=== PATIENT | male | born 1995 | race African-American/Black ===

== ENCOUNTER 2024-06-08 13:46 | Emergency (ER) | payer OTHER, SELFPAY ==
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
[2024-06-08 14:14] VITALS: BP 145/75; PULSE 43; RESP 18; TEMP 36.7; O2SAT 95
[2024-06-08] MEDS: ACETAMINOPHEN 500 MG TABLET 1000 MG PO (17:25)
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
--- OUTSIDE RECORDS SUMMARY | 2024-06-12 16:50 | XMS_ITS ---
Author Organization [facility] Address [address] [place] [address] Care Team Providers Care Human Resources Trainee Name Role Phone Yeny Meyer Primary Care Provider [phone] REASON FOR VISIT dm f/u Encounters Encounter Location Date Provider Diagnosis [address] [place] [address] 03/20/2024 Yeny Meyer Plan Of Treatment No Information Progress Notes * Kareen CARDENASlDOB: 6 (29 yo M)Acc No.[id number]:03/20/2024 Progress Notes Patient:?Balta CARDNEAS Provider:?Yeny Meyer DNP, FNP-C :1995???Age:29 Y???Sex:Male Lake e:03/20/2024 [address] [facility] [facility] Subjective: * Chief Complaints: * ???1. Dm f/u. * Medical History:? Objective: Assessment: Plan: * Treatment: * Care Plan Details* * Electronic signature of Honey Meyer DNP, FNP-C on 06/12/2024 at 04:49 PM PRODUCTION MATERIAL COORDINATOR Sign off status: Pending Visit Status:?N/S (No-Show) * Provider:?Yeny Meyer DNP, FNP-C Lake e:?03/20/2024 Generated for Printi ng/Faxing/eTransmitting on:?06/12/2024 04:49 PM PRODUCTION MATERIAL COORDINATOR
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
--- OUTSIDE RECORDS SUMMARY | 2024-06-12 16:50 | XMS_ITS | Patient Health Record ---
Author Organization [facility] Address [address] [place] [address] Care Team Providers Care Reel Winder Name Role Phone Yeny Meyer Primary Care Provider [phone] Allergies No Known Allergies Results Component Value Reference Range Notes HEMOGLOBIN A1c (IH) Reviewed date:03/11/2024 10:06:34 AM Interpretation:8.1 Performing Lab: Notes/Report: 8.1 HEMOGLOBIN A1c 8.1 4 - 5.9 MICROALBUMIN/CREATININE, RAN DOM URINE * Reviewed date:03/12/2024 12:37:22 PM Interpretation:289 Performing Lab:[facility], [address] [place] [id number] Notes/Report: ALBUMIN CONCENTRATION, URINE 22 CREATININE, URINE 76 MICROALBUMIN/CREATININE RATIO 289 <=30 MG/G BLOOD COUNT WITH DIFF * Reviewed date:03/12/2024 12:37:23 PM Interpretation:Normal Performing Lab:[facility], [address] [place] [address] Notes/Report: WBC 5.0 3.9-12.0 K/UL RBC 5.05 4.00-6.10 M/UL HEMOGLOBIN 14.8 13.2-18.0 GM/DL HEMATOCRIT 43.7 38.0-55.0 % MCV 86.5 80.0-99.0 FL MCH 29.3 26.0-35.0 PG MCHC 33.8 32.0-37.0 GM/DL RDW 12.9 11.6-15.0 % PLATELET 226 150-450 K/UL MPV 10.3 6.5-11.0 FL METHOD Automated Differential % NEUTROPHIL - AUTOMATED COUNT 56.1 40.0-70.0 % % LYMPHOCYTE - AUTOMATED COUNT 32.9 25.0-45.0 % % MONOCYTE - AUTOMATED COUNT 6.7 2.0-12.0 % % EOSINOPHIL - AUTOMATED COUNT 3.6 0.0-6.0 % % BASOPHIL - AUTOMATED COUNT 0.7 0.0-2.0 % ABSOLUTE NEUTROPHIL - AUTOMA SOLOMON COUNT 2.8 1.3-7.5 K/UL ABSOLUTE LYMPHOCYTE - AUTOMA SOLOMON COUNT 1.6 1.3-4.2 K/UL ABSOLUTE MONOCYTE - AUTOMATED COUNT 0.3 0.2-1 .0 K/UL ABSOLUTE EOSINOPHIL - AUTOMA SOLOMON COUNT 0.2 0.0-0.5 K/UL ABSOLUTE BASOPHIL - AUTOMATED COUNT 0.0 <=0.2 K/UL NUCLEATED RBC'S - AUTOMATED COUNT 0.7 COMPREHENSIVE METABOLIC PANE L (CMP) * Reviewed date:03/12/2024 12:37:23 PM Interpretation:BS 250 Performing Lab:[facility], [address] [place] [address] Notes/Report: BLOOD UREA NITROGEN 15 6-20 MG/DL SODIUM 139 135-145 MMOL/L POTASSIUM 4.8 3.5-5.2 MMOL/L CHLORIDE 101 98-108 MMOL/L CO2 CONTENT 31 24-32 MMOL/L GLUCOSE 250 65-110 MG/DL CALCIUM 9.5 8.6-10.6 MG/DL CREATININE 0.98 0.50-1.50 MG/DL TOTAL PROTEIN 6.7 6.0-8.0 GM/DL ALBUMIN 4.1 3.4-5.0 GM/DL ALK PHOS 185 40-125 U/L ALT 21 7-50 U/L AST 18 10-40 U/L BILIRUBIN, TOTAL 0.5 0.0-1.2 MG/DL ANION GAP 7 3-11 MMOL/L ESTIMATED GLOMERULAR FILTRAT ION RATE, CKD-EPI 108 >=60 mL/min/1.73m*2 HEP C ANTIBODY * Reviewed date:03/12/2024 12:37:23 PM Interpretation:Negative Performing Lab:[facility], [address] [place] [id number] Notes/Report: HEPATITIS C AB Negative Negative LIPID PANEL * Reviewed date:03/12/2024 12:37:23 PM Interpretation:Normal Performing Lab:[facility], [address] [place] [address] Notes/Report: CHOLESTEROL 176 <200 MG/DL HDL 61 >40 MG/DL TRIGLYCERIDE 70 <150 MG/DL LDL, CALCULATED 101 <130 MG/DL CHLAMYDIA/GC AMP PROBE - URI NE * Reviewed date:03/14/2024 06:46:33 AM Interpretation:Negative Performing Lab:[facility], [address] [place] [address] Notes/Report: CHLAMYDIA AMP PROBE Negative Negative GC AMP PROBE Negative Negative TOTAL SYPHILIS ANTIBODY IGG AND IGM * Reviewed date:03/12/2024 12:37:23 PM Interpretation:Negative Performing Lab:[facility], [address] [place] [address] Notes/Report: TOTAL SYPHILIS Non-Reactive Non-Reactive HIV ANTIBODY/ANTIGEN SCREEN WITH REFLEX * Reviewed date:03/12/2024 12:37:23 PM Interpretation:Negative Performing Lab:[facility], [address] [place] [address] Notes/Report: HIV AG-AB Non-Reactive Non-Reactive HIV-1 AB Non-Reactive Non-Reactive HIV-1 AG Non-Reactive Non-Reactive HIV-2 AB Non-Reactive Non-Reactive TRICHOMONAS VAGINALIS BY AMP LIFIED PROBE Reviewed date:03/14/2024 06:46:33 AM Interpretation:Negative Performing Lab:[facility], [address] [place] [address] Notes/Report: This test utilizes a specimen type or collection device that is considered a modification of the FDA approved test, and its performance characteristics were determined by [facility]. It has not been cleared or approved by the U.S. Food and Drug Administration. TRICHOMONAS VAGINALIS AMP PROBE Negative Negative Reason For Referral No Information Medications Medication SIG (Take, Route, Frequency, Duration) Notes Start Date End Date Status Lantus SoloStar 100 UNIT/ML 20 units Subcutaneous Endo BRENDA Active HumaLOG KwikPen 100 UNIT/ML 4 units plus sliding scale Subcutaneous Endo BRENDA Active Immunizations Vaccine Route Administration Date Status Comme nts FLU VAC TRIVAL (3 ORTIZ) NO MA SV >6 MO Unknown 03/11/2024 Refused HEP A VACC, PED/ADOL, 2 DOSE Unknown 12/20/2013 Adminis tered Hep B, unspecified formulati on (CPT 97195 Inactive) Unknown 1996 Administered Hep B, unspecified formulati on (CPT 34049 Inactive) Unknown 1996 Administered Hep B, unspecified formulati on (CPT 13599 Inactive) Unknown 1996 Administered Hib, unspecified formulation Unknown 1996 Adminis tered Hib, unspecified formulation Unknown 1996 Adminis tered Hib, unspecified formulation Unknown 1996 Adminis tered HPV (human papillomavirus), quadrivalent, 3 dose schedule Unknown 03/23/2011 Administered HPV (human papillomavirus), quadrivalent, 3 dose schedule Unknown 05/23/2011 Administered HPV (human papillomavirus), quadrivalent, 3 dose schedule Unknown 09/21/2011 Administered MMR VACCINE, SC Unknown 06/24/1997 Administered MMR VACCINE, SC Unknown 02/27/2002 Administered PNEUMOCOCCAL VACC 13 ORTIZ IM Unknown 03/11/2024 Refused poliovirus vaccine, unspecif ied formulation Unknown 1996 Administered poliovirus vaccine, unspecif ied formulation Unknown 1996 Administered poliovirus vaccine, unspecif ied formulation Unknown 1996 Administered poliovirus vaccine, unspecif ied formulation Unknown 02/27/2002 Administered TDAP VACCINE >7 IM Unknown 02/05/2008 Administered VARICELLA IMMUNIZATION Unknown 03/25/1997 Administered VARICELLA IMMUNIZATION Unknown 11/14/2006 Administered Social History Tobacco Use: Social History Observation Description Date Details (start date - stop date) Never Smoker NA - NA Sexual History Question Answer Notes Had sex in the past 12 months (vaginal, oral, or anal)? Yes with Women only Use protection? Yes How often? Some of the time Prevention strategies discussed: Condoms Have you ever had a Sexually transmitted disease ? Yes Chlamydia? Yes Tobacco use other than smoking: Question Answer Notes Are you an other tobacco user? No Tobacco Control (Standard) Question Answer Notes Tobacco use: Nonsmoker Additional Findings: Tobacco non-user Current no nsmoker AUDIT-C (Standard) Question Answer Notes Did you have a drink containing alcohol in the p ast year? 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) Active confirmed Vital Signs Heart Rate 67 /min 03/11/2024 Temperature 98.5 degrees Fahrenheit 03/11/2024 Respiratory Rate 16 /min 03/11/2024 Height-cm 175.26 cm 03/11/2024 Blood pressure diastolic 90 mm Hg 03/11/2024 Oximetry 100 % 03/11/2024 Weight-kg 80.1 kg 03/11/2024 Height 69 in 03/11/2024 Blood pressure systolic 147 mm Hg 03/11/2024 Weight 176.6 lbs 03/11/2024 BMI 26.08 kg/m2 03/11/2024 Encounters Encounter Location Date Provider Diagnosis [facility] [address] [place] [address] 03/11/2024 Yeny Meyer Type 1 diabetes mellitus with other diabetic kidney complication E10.29 ; Proteinuria, unspecified R80.9 ; Elevated blood pressure reading R03.0 ; Routine screening for STI (sexually transmitted infection) Z11.3 ; BMI 26.0-26.9,adult Z68.26 ; Exercise counseling Z71.82 and Dietary counseling Z71.3 Assessments Encounter Date Diagnosis (ICD Code) Assessment Notes Treatment Notes Treatment Clinical Notes Section Notes 03/11/2024 Type 1 diabetes mellitus with other diabetic kidney complication (ICD-10 - E10.29) encourageD patient to call endocrinology and schedule follow-up appointment. States he does not need refills on his insulin at this time. The plan of care is based on evidence based guidelines recommended by the [place] [employer] (ADA) for Type 2 Diabetes. No medication changes at this time. Recommend continue to monitor blood sugar and carb intake regularly. They are to report changes to our office. Recommend maintaining regular eye exams annually and foot exams daily. Discussed continued lifestyle modifications with reduced carbohydrates and at least 20 minutes per day exercise/activit y. 03/11/2024 Proteinuria, unspecified (ICD-10 - R80.9) 03/11/2024 Elevated blood pressure reading (ICD-10 - R03.0) Discussed HTN in detail with patient, treatment options, and lifestyle modifications. Would like to get patient's labs back prior to starting medication. Plan to start patient on lisinopril at his next visit. 03/11/2024 Routine screening for STI (sexually transmitted infection) (ICD-10 - Z11.3) 03/11/2024 BMI 26.0-26.9,adult (ICD-10 - Z68.26) 03/11/2024 Exercise counseling (ICD-10 - Z71.82) 03/11/2024 Dietary counseling (ICD-10 - Z71.3) 03/11/2024 Other Health Maintenance Cervical cancer screening- begins at age 21 Breast cancer screening- begins at age 40 unless a family history Colon cancer screening- begins at age 45 unless family history Osteoporosis screening- begins at age 65 Lung cancer screening for smokers- begins at age 45 AAA screening- males 65-75 hx of smoking . --- TDAP- recommend every 10 years, unless injury then every 5 years Influenza- recommended annually COVID-19- recommend 1 dose if updated vaccine is given pneumococcal- recommend, age 65 and older meningococcal B- recommend, age 19-23 RSV- recommnend age, 60 and older Zoster- recommend 2 doses, age 50 and older HPV- recommend 2-3 doses, through age 46 -- 1. Please review the list of medications given to you today against what you have at home. If you find any discrepancies please call our office and give corrections. 2. Our office will contact you about any referrals or test ordered at this visit. 3. If Labs were ordered please do them ss soon as possible. WE WILL CALL YOU IF LABS ARE ABNORMAL. 4. If you see any specialist such as cardiology, endocrinology, orthopedics, pulmonology, etc. please have them fax your most recent patient visit to us [phone] --- PLEASE DOWNLOAD OUR [place] [employer] ENTER CODE: [email or web address] This will allow you to access you medical information such as labs, medication list, etc. discussed recommended immunizations and screenings. Encouraged healthy diet with adequate water intake and exercising at least 30 mins a day. Patient verbalizes understanding and agrees with plan of care. Plan of care was aligned with what matters to the patient. This chart was completed with a dictation device. 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
--- OUTSIDE RECORDS SUMMARY | 2024-06-12 16:50 | XMS_ITS ---
Author Organization [facility] Address [address] [place] [address] Care Team Providers Care Fiber Optic Technician Name Role Phone Mitch Yeny Primary Care Provider Allergies No Known Allergies Results Component Value Reference Range Notes TRICHOMONAS VAGINALIS BY AMP LIFIED PROBE Reviewed date:03/14/2024 06:46:33 AM Interpretation:Negative Performing Lab:[facility], [address] [place] [id number] Notes/Report: This test utilizes a specimen type or collection device that is considered a modification of the FDA approved test, and its performance characteristics were determined by [facility]. It has not been cleared or approved by the U.S. Food and Drug Administration. TRICHOMONAS VAGINALIS AMP PROBE Negative Negative HIV ANTIBODY/ANTIGEN SCREEN WITH REFLEX * Reviewed date:03/12/2024 12:37:23 PM Interpretation:Negative Performing Lab:[facility], [address] [place] [address] Notes/Report: HIV AG-AB Non-Reactive Non-Reactive HIV-1 AB Non-Reactive Non-Reactive HIV-1 AG Non-Reactive Non-Reactive HIV-2 AB Non-Reactive Non-Reactive TOTAL SYPHILIS ANTIBODY IGG AND IGM * Reviewed date:03/12/2024 12:37:23 PM Interpretation:Negative Performing Lab:[facility], [address] [place] [address] Notes/Report: TOTAL SYPHILIS Non-Reactive Non-Reactive CHLAMYDIA/GC AMP PROBE - URI NE * Reviewed date:03/14/2024 06:46:33 AM Interpretation:Negative Performing Lab:[facility], [address] [place] [address] Notes/Report: CHLAMYDIA AMP PROBE Negative Negative GC AMP PROBE Negative Negative LIPID PANEL * Reviewed date:03/12/2024 12:37:23 PM Interpretation:Normal Performing Lab:[facility], [address] [place] [address] 278[address] Notes/Report: CHOLESTEROL 176 <200 MG/DL HDL 61 >40 MG/DL TRIGLYCERIDE 70 <150 MG/DL LDL, CALCULATED 101 <130 MG/DL HEP C ANTIBODY * Reviewed date:03/12/2024 12:37:23 PM Interpretation:Negative Performing Lab:[facility], [address] [place] [address] Notes/Report: HEPATITIS C AB Negative Negative COMPREHENSIVE METABOLIC PANE L (CMP) * Reviewed date:03/12/2024 12:37:23 PM Interpretation:BS 250 Performing Lab:[facility], [address] [place] [address] Notes/Report: BLOOD UREA NITROGEN 15 6-20 MG/DL [...] FILTRAT ION RATE, CKD-EPI 108 >=60 mL/min/1.73m*2 BLOOD COUNT WITH DIFF * Reviewed date:03/12/2024 12:37:23 PM Interpretation:Normal Performing Lab:[facility], [address] [place] [address] Notes/Report: WBC 5.0 3.9-12.0 K/UL RBC 5.05 [...] K/UL NUCLEATED RBC'S - AUTOMATED COUNT 0.7 MICROALBUMIN/CREATININE, RAN DOM URINE * Reviewed date:03/12/2024 12:37:22 PM Interpretation:289 Performing Lab:[facility], [address] [place] [address] Notes/Report: ALBUMIN CONCENTRATION, URINE 22 CREATININE, URINE 76 MICROALBUMIN/CREATININE RATIO 289 <=30 MG/G HEMOGLOBIN A1c (IH) Reviewed date:03/11/2024 10:06:34 AM Interpretation:8.1 Performing Lab: Notes/Report: 8.1 HEMOGLOBIN A1c 8.1 4 - 5.9 REASON FOR VISIT MAYLIN/check up Medications Medication SIG (Take, Route, Frequency, Duration) Notes Start Date End Date Status Lantus SoloStar 100 UNIT/ML 20 units Subcutaneous Endo BRENDA Active HumaLOG KwikPen 100 UNIT/ML 4 units plus sliding scale Subcutaneous Endo BRENDA Active Immunizations Vaccine Route Administration Date Status Comme nts FLU VAC TRIVAL (3 ORTIZ) NO PRSV >6 MO Unknown 03/11/2024 Refused PNEUMOCOCCAL VACC 13 ORTIZ IM Unknown 03/11/2024 Refused Social History Tobacco Use: Social History Observation [...] Problem Status W/U Status Risk Notes Problem [id number] Type 1 diabetes mellitus with other diabetic kidney complication (E10.29) Active confirmed Problem 675419332 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) Active confirmed Problem [id number] Diabetic ketoacidosis without coma associated with type 1 diabetes mellitus (E10.10) Active confirmed Vital Signs Temperature 98.5 degrees Fahrenheit 03/11/20 24 Blood pressure systolic 147 mm Hg 03/11/20 24 Blood pressure diastolic 90 mm Hg 024 Heart Rate 67 /min 03/11/2024 Respiratory Rate 16 /min 03/11/2024 Height 69 in 03/11/2024 Weight 176.6 lbs 03/11/2024 BMI 26.08 kg/m2 03/11/2024 Oximetry 100 % 03/11/2024 Height-cm 175.26 cm 03/11/2024 Weight-kg 80.1 kg 03/11/2024 Encounters Encounter Location Date Provider Diagnosis [facility] [address] [place] [address] 03/11/2024 Yeny Lopezclair Type 1 diabetes mellitus with other diabetic [...] on evidence based guidelines recommended by the [place] [employer] (ADA) for Type 2 Diabetes. [...] your most recent patient visit to us [phone] --- PLEASE DOWNLOAD OUR RENETTA Hey[employer]ubble ENTER CODE: [email or web address] This will allow you [...] with a dictation device. Plan Of Treatment Treatment Notes Assessment Notes Other Health Maintenance Cervical cancer screening- begins at age 21 Breast cancer screening- begins at age 40 unless a family history Colon cancer screening- begins at age 45 unless family history Osteoporosis screening- begins at age 65 Lung cancer screening for smokers- begins at age 45 AAA screening- males 65-75 hx of smoking . TDAP- recommend every 10 years, unless injury then every 5 years Influenza- recommended annually COVID-19- recommend 1 dose if updated vaccine is given pneumococcal- recommend, age 65 and older meningococcal B- recommend, age 19-23 RSV- recommnend age, 60 and older Zoster- recommend 2 doses, age 50 and older HPV- recommend 2-3 doses, through age 46 1. Please review the list of medications [...] your most recent patient visit to us [phone] PLEASE DOWNLOAD OUR RENETTA HeyBubble ENTER CODE: [email or web address] This will allow you to access you medical information such as labs, medication list, etc. 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 Patient has a past medical history of type 1 diabetes, diabetic nephropathy, diabetic retinopathy. Patient sees [facility] endocrinology. His last appointment was in April 2022. Patient states that he uses his mom's insulin.? He reports episodes of hypoglycemia with working out.? ?patient denies symptoms of STI. Denies penile discharge, urinary burning, hematuria, and known exposure to STIs.? Has fevers and chills.? Patient denies smoking and history of smoking. Denies alcohol use.? Uses marijuana.? Denies any emergency room visits or hospitalizations within the past year. ???Screening:?Immunizations?- - - - - - -- ?TDAP- 2008, PAST DUE, ?Influenza- PAST DUE, ?COVID-19- PAST DUE, ?pneumococcal- PAST DUE, ?RSV- N/A,?Zoster- N/A, ?HPV-2012.?USPSTF Screening?- - - - - - - - ?Colon cancer screening- age 45 unless family history ?Lung cancer screening- for smokers begins at age 45 ?AAA screening- males 65-75 hx of smoking?.?Diabetes mellitus:? Sees BRENDA BANERJEE for mamagement? ANA LAURA OROSCO M.D.; May 10 2022? Last visit? In the past year the patient has had the following diabetic visits:? 0 hospital admissions 0 Emergency Department visits? Denies recent steroid use.? Current treatment includes:? ?Lantus 15 units nightly ?Humalog 5 units at breakfast, 6 units at lunch, 8 units at supper A1c today: 8.1% Previous A1c: <7% 04/2022 Patient report compliance with taking diabetes medicaiton.? CGM:? glucometer patient monitors blood sugar 3-4 times a day.? Diet: compliant? Exercise: yes smoking hx:? no CHRISTIANE hx: no? Diabetic ketoacidosis hx: yes x2? Hyperosmolar hyperglycemic hx:? yes? ?no? NO Hypoglycemic episodes,?reports unawareness,? denies noctural hypoglycemia? Retinopathy: has hx , unknown last eye exam pt stated when I was a kid ? Nephropathy:previously elevated, will check today? Neuropathy: 03/11/2024, the patient checks own feet and trims own nails? HTN: pt takes NONE? most recent BP 147/90 HLD: pt takes NONE most recent lipid panel , WILL ORDER TODAY? The following prevention program has been set up and includes: one time Pneumovax? annual Influenza? annual foot exams? annual eye exams? The patient's goals for diabetes control are:? MORNING (FASTING) BLOOD SUGAR LESS THAN 140.? BLOOD SUGAR PRIOR TO MEALS OF 80-140.? BEDTIME BLOOD SUGAR LESS THAN 140.? HEMOGLOBIN A1C LESS THAN? 7? WITHOUT SIGNIFICANT SYMPTOMS. * ROS:?General/Constitutional:?Patient denies?fever , chills , change in appetite, fatigue.?Ophthalmologic:?Patient denies?? Vision disturbance,??eye pain, ?vision disturbance.?ENT:?Patient denies?ear pain, epitaxsis, sore throat, difficulty swallowing.?Endocrine:?Patient denies??polyuria, polydipsia, polyphagia,?cold or heat intolerance, and hair loss, ? Polyuria, polydipsia, polyphagia.?Respiratory:?Patient denies??cough, congestion,?dyspnea, hemoptysis,?increased sputum production, and wheezing..?Cardiovascular:?Patient denies?angina, Orthopnea, PND, palpitations, peripheral edema , Syncopal events.?Gastrointestinal:?Patient denies?nausea , vomiting , diarrhea , constipation,??hematochezia,??acid reflux, abdominal pain.?Hematology:?Patient denies??easy bleeding,?easy.?Genitourinary:?Patient denies?urinary symptoms.?Musculoskeletal:?Patient denies?painful joints , swollen joints , weakness.?Skin:?Patient denies?changing moles , masses , rash, ?nonhealing wounds.?Neurologic:?Patient denies?tingling/numbness , tremor , memory loss , dizziness, dysarthria, off balance , new onset headache, ?neuropathy.?Psychiatric:?Patient denies??SI, HI,?feelings of anxiety, feelings of depression,?and auditory or visual hallucinations..? * Medical History:? * Surgical History:?Denies Pas t Surgical History * Hospitalization/Major Diagno stic Procedure:?Denies Past Hospitalization * Family History:?No Family Hi story documented..? * Social History:?Tobacco Use:?Tobacco use other than smoking?Are you an other tobacco user??No ?Are you a second hand smoker?Are you a second hand smoker??No ?Tobacco Control (Standard)?Tobacco use:?Nonsmoker ?Additional Findings: Tobacco non-user?Current nonsmoker ???PCMH:?ADULT?Education:?More than high school diploma/GED ?Employment:?Not employed, looking for job ?Do you understand spoken latvian??Yes ?Communication needs (hearing, visual or cognitive):?No ?Good ability to interact with other people:?Yes ?Insecurities in? (list all that apply)?None ?Advanced Care Planning in place? (Must have copy of legal document)?No ?Advanced Care Planning Date?03/11/2024 ?Reviewed/Updated?03/11/2024 ???Drug/Alcohol:?AUDIT-C (Standard)?Did you have a drink containing alcohol in the past year??No ?Points?0 ?Interpretation?Negative ???Sexual History:?Sexual History?Had sex in the past [...] reasons in the past 12 months??Yes ?Marijuana??Yes ?Caffeine?Intake:?1-2 cups per day * Medications:?TakingLantus So loStar 100 UNIT/ML Solution Pen-injector 20 units Subcutaneous , Notes to Pharmacist: Endo SIUHumaLOG KwikPen 100 UNIT/ML Solution Pen-injector 4 units plus sliding scale Subcutaneous , Notes to Pharmacist: Endo SIUMedication List reviewed and reconciled with the patientTaking Lantus SoloStar 100 UNIT/ML Solution Pen-injector 20 units Subcutaneous , Notes to Pharmacist: Endo SIUTaking HumaLOG KwikPen 100 UNIT/ML Solution Pen-injector 4 units plus sliding scale Subcutaneous , Notes to Pharmacist: Endo SIUMedication List reviewed and reconciled with the patient * Allergies:?N.K.D.A.no[Allerg ies Verified] Objective: * Vitals: Wt 176.6lbs?? 03/11/2024 09:51:36 AM CDT?? Wt-kg* 80.1 kg?? 03/11/2024 09:51:36 AM CDT?? Galileo cele?Defensive Driving Instructor Ht* 69in?? 03/11/2024 09:51:36 AM CDT?? Galileo cele?Defensive Driving Instructor Ht-cm* 175.26 cm?? 03/11/2024 09:51:36 AM CDT?? Galileo cele?Defensive Driving Instructor BMI* 26.08Index?? 03/11/2024 09:51:36 AM CDT?? Galileo cele?[place] BP* sittin/90mm Hg?? 03/11/2024 09:51:36 AM CDT ?? Erika?Defensive Driving Instructor Temp* 98.5F?? 03/11/2024 09:51:36 AM CDT?? Galileo cele?[place] HR* 67/min?? 03/11/2024 09:51:36 AM CDT?? Galileo cele?Defensive Driving Instructor RR* 16/min?? 03/11/2024 09:51:36 AM CDT?? Galileo cele?[place] Oxygen sat %* 100%?? 03/11/2024 09:51:36 AM CDT?? Galileo cele?[place] * Examination: ???General Examination: ?GENERAL APPEARANCE:?alert , pleasant, well nourished, in no acute distress.?HEAD:?normocephalic , atraumatic.?EYES:?pupils equal, round, reactive to light and accommodation, conjunctiva clear.?EARS:?auditory canal clear, tympanic membrane intact, clear, light reflex present.?NOSE:?nares patent, septum intact.?ORAL CAVITY:?mucosa moist, no lesions, tongue in midline.?THROAT:? clear, no erythema, no exudate, uvula midline.?NECK/THYROID:?neck supple, Trachea midline, no adenopathy, no thyromegaly or masses.?SKIN:?no rashes, warm and dry, no concerning lesions.?HEART:?regular rate and rhythm without??murmur, rub, and gallop, no jugular venous distention.?LUNGS:?Clear bilaterally with?no wheezes, no rales, no rhonchi.?ABDOMEN:?bowel sounds present, soft, nontender, nondistended, no hepatosplenomegaly, no palpable masses or hernias.?BACK?No deformity.? No tenderness to percussion over the vertebra. No CVA tenderness.?MUSCULOSKELETAL:?No peripheral clubbing, cyanosis, edema or erythema.?+2 Patellar DTRs.?PERIPHERAL PULSES:? 2+ radial, 2+ dorsalis pedis.?NEUROLOGIC:?A&O x4, cooperative with exam, cranial nerves 2-12 grossly intact , no tremor.?PSYCH:? cooperative with exam, mood affect full range, good eye contact, thought content without suicidal ideation, or delusions.?FOOT EXAM:? Assessment: * Assessment: 1.?Type 1 diabetes mellitus with other diabetic kidney complication - E10.29 (Primary)???2.?Proteinuria, unspecified - R80.9???3.?Elevated blood pressure reading - R03.0???4.?Routine screening for STI (sexually transmitted infection) - Z11.3???5.?BMI 26.0-26.9,adult - Z68.26???6.?Exercise counseling - Z71.82???7.?Dietary counseling - Z71.3??? Plan: * Treatment: ? Value Reference Range ?CREATININE, URINE 76 - MG/ DL * ?MICROALBUMIN/CREATININE RATIO 289 H <=30 - MG/G * ?ALBUMIN CONCENTRATION, URINE 22 - MG/DL * This lab was reviewed by Andreea Meyer on 03/12/2024 at 12:37 PM CDT ?LAB: BLOOD COUNT WITH DIFF ? Value Reference Range ?NUCLEATED RBC'S 0.7 - /100 * ?WBC 5.0 3.9-12.0 - K/UL * ?RBC 5.05 4.00-6.10 - M/U L * ?HGB 14.8 13.2-18.0 - GM/ DL * ?HCT 43.7 38.0-55.0 - % * ?MCV 86.5 80.0-99.0 - FL * ?MCH 29.3 26.0-35.0 - PG * ?MCHC 33.8 32.0-37.0 - GM/ DL * ?RDW 12.9 11.6-15.0 - % * ?PLT 226 150-450 - K/UL * ?MPV 10.3 6.5-11.0 - FL * ?METHOD Automated Differential - * ?% NEUTROPHIL 56.1 40.0-70.0 - % * ?% LYMPHOCYTE 32.9 25.0-45.0 - % * ?% MONOCYTE 6.7 2.0-12.0 - % * ?% EOSINOPHIL 3.6 0.0-6.0 - % * ?% BASOPHIL 0.7 0.0-2.0 - % * ?NEUTROPHIL 2.8 1.3-7.5 - K/ UL * ?LYMPHOCYTE 1.6 1.3-4.2 - K/ UL * ?MONOCYTE 0.3 0.2-1.0 - K/UL * ?EOSINOPHIL 0.2 0.0-0.5 - K/ UL * ?BASOPHIL 0.0 <=0.2 - K/UL * This lab was reviewed by Andreea Meyer on 03/12/2024 at 12:37 PM CDT ?LAB: COMPREHENSIVE METABOLIC PANEL (CMP) ? Value Reference Range ?GLUCOSE 250 H 65-110 - MG/DL * ?BLOOD UREA NITROGEN 15 6-2 0 - MG/DL * ?POTASSIUM 4.8 3.5-5.2 - MMO L/L * ?SODIUM 139 135-145 - MMOL/ L * ?CREATININE 0.98 0.50-1.50 - MG/DL * ?CHLORIDE 101 98-108 - MMOL/ L * ?CO2 CONTENT 31 24-32 - MMO L/L * ?ANION GAP 7 3-11 - MMOL/L * ?CALCIUM 9.5 8.6-10.6 - MG/D L * ?TOTAL PROTEIN 6.7 6.0-8.0 - GM/DL * ?ALBUMIN 4.1 3.4-5.0 - GM/DL * ?BILIRUBIN,TOTAL 0.5 0.0-1.2 - MG/DL * ?ALK PHOS 185 H 40-125 - U/L * ?AST 18 10-40 - U/L * ?ALT 21 7-50 - U/L * ?ESTIMATED GLOMERULAR FILTRATION RATE, CKD-EPI 108 >=60 - mL/min/1.73m*2 * This lab was reviewed by Andreea Meyer on 03/12/2024 at 12:37 PM CDT ?LAB: LIPID PANEL ? Value Reference Range ?CHOLESTEROL 176 <200 - MG/D L * ?TRIGLYCERIDE 70 <150 - MG/ DL * ?HDL 61 >40 - MG/DL * ?LDL,CALCULATED 101 <130 - M G/DL * This lab was reviewed by Andreea Meyer on 03/12/2024 at 12:37 PM CDT ?LAB: HEMOGLOBIN A1c (IH) (Collection Date & Time - 03/11/2024)?8.1* ? Value Reference Range ?HEMOGLOBIN A1c 8.1 4 - 5.9 Clinical Notes:encourageD patient to call endocrinology and schedule follow-up appointment. States he does not need refills on his insulin at this time. The plan of care is based on evidence based guidelines recommended by the [place] [employer] (ADA) for Type 2 Diabetes. No medication changes at this time. Recommend continue to monitor blood sugar and carb intake regularly. They are to report changes to our office. Recommend maintaining regular eye exams annually andfoot exams daily. Discussed continued lifestyle modifications with reduced carbohydrates and at least 20 minutes per day exercise/activity.??2.?Elevated blood pressure reading? Clinical Notes:Discussed HTN in detail with patient, treatment options, and lifestyle modifications. Would like toget patient's labs back prior to starting medication. Plan to start patient on lisinopril at his next visit. ??3.?Routine screening for STI (sexually transmitted infection)?LAB: HEP C ANTIBODY ? Value Reference Range ?HEP C ANTIBODY Negative Negative - * This lab was reviewed by Andreea Meyer on 03/12/2024 at 12:37 PM CDT ?LAB: CHLAMYDIA/GC AMP PROBE - URINE ? Value Reference Range ?CHLAMYDIA AMP PROBE Negative Neg ative - * ?GC AMP PROBE Negative Negative - * This lab was reviewed by Andreea Meyer on 03/14/2024 at 06:46 AM CDT ?LAB: TOTAL SYPHILIS ANTIBODY IGG AND IGM ? Value Reference Range ?TOTAL SYPHILIS Non-Reactive Non-Reac tive - * This lab was reviewed by Andreea Meyer on 03/12/2024 at 12:37 PM CDT ?LAB: HIV ANTIBODY/ANTIGEN SCREEN WITH REFLEX ? Value Reference Range ?HIV-1 AB Non-Reactive Non-Reactive - * ?HIV-1 AG Non-Reactive Non-Reactive - * ?HIV-2 AB Non-Reactive Non-Reactive - * ?HIV AG-AB Non-Reactive Non-Reactive - * This lab was reviewed by Andreea Meyer on 03/12/2024 at 12:37 PM CDT ?LAB: TRICHOMONAS VAGINALIS BY AMPLIFIED PROBE ? Value Reference Range ?TRICHOMONAS VAGINALIS AMP PROBE Negative Negative - * This lab was reviewed by Andreea Meyer on 03/14/2024 at 06:46 AM CDT 4.?Others? Notes: Health Maintenance Cervical cancer screening- begins at age 21 Breast cancer screening- begins at age 40 unless a family history Colon cancer screening- begins at age 45 unless family history Osteoporosis screening- begins at age 65 Lung cancer screening for smokers- begins at age 45 AAA screening- males 65-75 hx of smoking . TDAP- recommend every 10 years, unless injury then every 5 years Influenza- recommended annually COVID-19- recommend 1 dose if updated vaccine is given pneumococcal- recommend, age 65 and older meningococcal B- recommend, age 19-23 RSV- recommnend age, 60 and older Zoster- recommend 2 doses, age 50 and older HPV- recommend 2-3 doses, through age 46 1. Please review the list of medications [...] your most recent patient visit to us [phone] PLEASE DOWNLOAD OUR RENETTA HeyBubble ENTER CODE:[email or web address] This will allow you to access you medical information such as labs, medication list, etc. ?? Clinical Notes:discussed recommended immunizations and screenings. Encouraged healthy diet with adequate water intake and exercising at least 30 mins a day. Patient verbalizes understanding and agrees with plan of care. Plan of care was aligned with what matters to the patient. This chart was completed with a dictation device. ?? * Immunizations:? FLU VAC TRIVAL (3 ORTIZ) NO PRSV >6 MO (Not administered - Refused: Patient decision)??? PNEUMOCOCCAL VACC 13 ORTIZ IM : 0.5 mL (Not administered - Refused: Patient decision) * Procedure Codes:?38164 COMPR EHEN METABOLIC [id number] HIV-1/HIV-2, SINGLE [id number] GLYCATED HEMOGLOBIN [id number] HEPATITIS C AB TEST * Preventive Medicine:? ??Counseling:?Care goal follow-up plan:?BMI management provided?Yes ?Above Normal BMI Follow-up?Giving encouragement to exercise, Lifestyle education regarding diet ?Exercise Counseling Provided-?Yes ?Nutrition/Dietary Counseling provided?Yes * Follow Up:?prn,1 Week (Reaso n: discuss labs and start lisinopril) * * Sign off status: Completed Visit Status:?CHK (Check Out ) true * Provider:?JANIS Tucker Date:?02/24 Generated for Dawood chow/Kayleigh/eTransmitting on:?06/12/2024 04:49 PM WIRE [employer]ILL ROVER History and Physical Notes * HPI (History of Present Illness) Category Sub-Category Detail Notes Category Not es Diabetes mellitus Sees BRENDA BANERJEE for mamagement ANA LAURA OROSCO M.D.; May 10 2022 Last visit In the past year the patient has had the following diabetic visits: 0 hospital admissions 0 Emergency Department visits Denies recent steroid use. Current treatment includes: Lantus 15 units nightly Humalog 5 units at breakfast, 6 units at lunch, 8 units at supper A1c today: 8.1% Previous A1c: <7% 04/2022 Patient report compliance with taking diabetes medicaiton. CGM: glucometer patient monitors blood sugar 3-4 times a day. Diet: compliant Exercise: yes smoking hx: no CHRISTIANE hx: no Diabetic ketoacidosis hx: yes x2 Hyperosmolar hyperglycemic hx: yes no NO Hypoglycemic episodes, reports unawareness, denies noctural hypoglycemia Retinopathy: has hx , unknown last eye exam pt stated when I was a kid Nephropathy:previously elevated, will check today Neuropathy: 03/11/2024, the patient checks own feet and trims own nails HTN: pt takes NONE most recent BP 147/90 HLD: pt takes NONE most recent lipid panel , WILL ORDER TODAY The following prevention program has been set up and includes: one time Pneumovax annual Influenza annual foot exams annual eye exams The patient's goals for diabetes control are: MORNING (FASTING) BLOOD SUGAR LESS THAN 140. BLOOD SUGAR PRIOR TO MEALS OF 80-140. BEDTIME BLOOD SUGAR LESS THAN 140. HEMOGLOBIN A1C LESS THAN 7 WITHOUT SIGNIFICANT SYMPTOMS. patient is a 28-year-old -[place] male patient presenting today as a transfer of care with complaints of needing an STI check. Patient has a past medical history of type 1 diabetes, diabetic nephropathy, diabetic retinopathy. Patient sees [facility] endocrinology. His last appointment was in April 2022. Patient states that he uses his mom's insulin. He reports episodes of hypoglycemia with working out. patient denies symptoms of STI. Denies penile discharge, urinary burning, hematuria, and known exposure to STIs. Has fevers and chills. Patient denies smoking and history of smoking. Denies alcohol use. Uses marijuana. Denies any emergency room visits or hospitalizations within the past year. Depression Screening PHQ-2 (2015 Edition) Little interest or pleasure in doing things?: Not at all Feeling down, depressed, or hopeless?: N ot at all Total Score: 0 Screening Immunizations - - - - - - -- T DAP- 2008, PAST DUE, Influenza- PAST DUE, COVID-19- PAST DUE, pneumococcal- PAST DUE, RSV- N/A, Zoster- N/A, HPV-2011 USPSTF Screening - - - - - - - - [place] n cancer screening- age 45 unless family history Lung cancer screening- for smokers begins at age 45 AAA screening- males 65-75 hx of smoking Examination Category Sub-Category Detail Notes Category Not es General Examination GENERAL APPEARANCE: alert , pleasant, well nourished, in no acute distress HEAD: normocephalic , atra umatic EYES: pupils equal, round, reactive to light and accommodation, conjunctiva clear EARS: auditory canal clear , tympanic membrane intact, clear, light reflex present NOSE: nares patent, septum intact THROAT: clear, no erythema, no exudate, uvula midline NECK/THYROID: neck supple, Trachea midline, no adenopathy, no thyromegaly or masses HEART: regular rate and rhy thm without murmur, rub, and gallop, no jugular venous distention LUNGS: Clear bilaterally wi th no wheezes, no rales, no rhonchi ABDOMEN: bowel sounds present , soft, nontender, nondistended, no hepatosplenomegaly, no palpable masses or hernias NEUROLOGIC: A&O x4, cooperative with exam, cranial nerves 2-12 grossly intact , no tremor SKIN: no rashes, warm and dry, no concerning lesions EXTREMITIES: PERIPHERAL PULSES: 2+ radial, 2+ dorsal is pedis BACK No deformity. No ten derness to percussion over the vertebra. No CVA tenderness MUSCULOSKELETAL: No peripheral clubbi ng, cyanosis, edema or erythema. +2 Patellar DTRs PSYCH: cooperative with exa m, mood affect full range, good eye contact, thought content without suicidal ideation, or delusions ORAL CAVITY: mucosa moist, no les ions, tongue in midline FOOT EXAM: Sensory and motor te sting performed:: sensations and strength normal Pedal pulse taking performed:: 2+ Visual exam of foot performed:: Yes Neuropathy present:: No
== END 2024-06-08 17:46 | disposition home or self-care (01) ==
PROVIDERS: Emergency Provider Physician Assistant
DX: S16.1XXA Strain of muscle, fascia and tendon at neck level, initial encounter (principal); V89.2XXA Person injured in unspecified motor-vehicle accident, traffic, initial encounter
CPT/HCPCS: 70450; 72125; 99284; A9270